=== PATIENT | female | born 1975 | race Asian ===

== ENCOUNTER 2017-12-30 16:18 | Emergency (ER) | payer BC, OTHER ==
[2017-12-30 17:59] LABS: URINE PH (Dip) POC 5.5 (5.0-8.5)
[2017-12-30 17:59] LABS: URINE BLOOD (Dip) POC Trace-intact (NEGATIVE); URINE GLUCOSE (Dip) POC Negative (NEGATIVE); URINE KETONES (Dip) POC Trace (NEGATIVE); URINE LEUKOCYTE EST (Dip) POC Negative (NEGATIVE); URINE NITRITE (Dip) POC Negative (NEGATIVE); URINE TOTAL PROTEIN POC Negative (NEGATIVE)
== END 2017-12-30 18:44 | disposition left against medical advice (07) ==
LOC: FTE 16:18
DX: R10.31 Right lower quadrant pain (principal); R10.2 Pelvic and perineal pain
CPT/HCPCS: 81003; 81025; 99282